=== PATIENT | male | born 1985 | race Caucasian/White ===

== ENCOUNTER 2019-12-13 09:58 | Emergency (ER) | payer SELFPAY ==
[2015-10-16 19:40] VITALS: BP 153/77
[~2019-12-13 09:58] MED LIST: HYDR-3164 PO; POLY10DR OS
== END 2019-12-13 10:04 | disposition left against medical advice (07) ==
LOC: ER 09:58
DX: F41.9 Anxiety disorder, unspecified (principal); Z53.21 Procedure and treatment not carried out due to patient leaving prior to being seen by health care provider

== ENCOUNTER 2020-11-17 22:40 | Emergency (ER) | payer SELFPAY ==
[~2020-11-17] VITALS: Ht 182.9 cm; Wt 104.0 kg
--- NOTE | 2020-11-17 22:57 | PHYS DOC ---
Past Medical History Past Medical History: No Pertinent History (HANK WILD) Past Surgical History: Other Additional Past Surgical Histo: JAW (HANK WILD) Smoking Status: Current Every Day Smoker Alcohol Use: Occasionally Drug Use: None (HANK WILD) General Adult EDM: Chief Complaint: Confusion HPI: HPI: Patient is a 35 year old male who presents via EMS with complaints of confusion after a fall yesterday. Patient is a poor historian. Patient states the last thing he remembers yesterday was going to the store for a pack of cigarettes and some food. Per EMS, he was found outside of [facility] and did not know where he lived or how to get home. He has a laceration to his central forehead and left- sided facial swelling. Patient states he has a headache, but is unable to describe his pain or quantify it. Patient admits to drinking a beer or 2 today, but denies all other alcohol and recreational drug use. Patient has no other complaints at this time. (HANK WILD) Review of Systems: Review of Systems: Review of systems unable to be obtained secondary to patient's poor history. (HANK WILD) Heart Score: C/O Chest Pain: No (HANK WILD) Allergies: Allergies: Allergies Coded Allergies Type Severity Reaction Last Updated Verified No Known Drug Allergies 10/16/15 No (HANK WILD) Physical Exam: PE: Constitutional: Well developed, well nourished, poor hygiene, non-toxic a ppearance. HENT: 1.5 cm laceration to central forehead with a small abrasion over the right eyebrow. Left maxillary region swelling and ecchymosis. Bilateral external ears normal, oropharynx moist, nose normal. Eyes: PERRLA, EOMI, conjunctiva normal, no discharge. Neck: Normal range of motion, no tenderness, supple, no stridor. Cardiovascular: Heart rate regular rhythm, no murmur. Lungs & Thorax: Bilateral breath sounds clear to auscultation. Abdomen: Bowel sounds normal, soft, no tenderness, no masses, no pulsatile masses. Skin: Puncture wounds noted to LUE in antecubital region. Skin otherwise warm, dry, no erythema, no rash. Back: No tenderness, no CVA tenderness. Extremities: No tenderness, no cyanosis, no clubbing, ROM intact, no edema. Neurologic: Alert and oriented x3, normal motor function, normal sensory function, no focal deficits noted. Psychologic: Patient does not seem to remember or be able to account for the past 36 hours. He is otherwise responsive and cooperative. (HANK WILD) EKG: EKG: [] (HANK WILD) Radiology/Procedures: Radiology/Procedures: [] (HANK WILD) Impression: No focal parenchymal lesion or hemorrhage is identified. There is no midline shift or sulcal effacement. No acute vascular territory infarction is identified. Alatorre-white distinction is preserved. The ventricular system is within normal limits without compression hydrocephalus. The basal cisterns are well maintained. Face: Mild soft tissue contusion overlying the nose. Additionally contusion in the subcutaneous fat of the left cheek. There is a minimally displaced left nasal bone fracture. The visualized portions of the paranasal sinuses and mastoid air cells are well-pneumatized. Globes and orbital contents are normal. Periapical lucency surrounding the left mandibular first molar. IMPRESSION: 1. Contusion at the left face at the bridge of the nose without underlying osseous abnormality. 2. No acute intracranial abnormality. (RAMONA GIBBONS DO) Course & Med Decision Making: Course & Med Decision Making Pertinent Labs and Imaging studies reviewed. (See chart for details) Patient is poor historian and given his age, should not be experiencing acute amnesia on presentation. Ethanol and drugs of abuse screening will be perform ed. Due to unknown nature of head trauma and facial swelling, CT face and head was ordered. Patient care transferred to Dr. Gibbons at 2300. (HANK WILD) Course & Med Decision Making Imaging reviewed No acute intracranial abnormalities Swelling along the nasal bone but no acute fractures. Wound forehead was examined appears to be old--- Patient was observed and allowed to sleep. He was discharged in stable condition. (RAMONA GIBBONS DO) Dragon Disclaimer: Dragon Disclaimer: This electronic medical record was generated, in whole or in part, using a voice recognition dictation system. (HANK WILD) Departure Departure Impression: Primary Impression: Fall Additional Impressions: Head injury Abrasion of forehead Disposition: HOME / SELF CARE / HOMELESS Condition: STABLE Referrals: NO PCP (PCP) Patient Instructions: Abrasions, Fall Prevention and Home Safety, Head Injury, Adult HANK WILD Nov 17, 2020 22:57 RAMONA GIBBONS DO Nov 18, 2020 00:11
[2020-11-17 22:58] LABS: BASO # 0.1 x10^3/uL (0.0-0.2); BASO % 1 % (0-3); EOS # 0.1 x10^3/uL (0.0-0.7); EOS % 0 % (0-3); HEMATOCRIT 45.2 % (39.0-53.0); HEMOGLOBIN 15.9 g/dL (13.0-17.5); LYMPH # 2.5 x10^3/uL (1.0-4.8); LYMPH % 18 % (24-48); MEAN CORPUSCULAR HEMOGLOBIN 34 pg (25-35); MEAN CORPUSCULAR HGB CONC 35 g/dL (31-37); MEAN CORPUSCULAR VOLUME 96 fL (79-100); MONO # 0.9 x10^3/uL (0.0-1.1); MONO % 6 % (0-9); NEUT # 10.6 x10^3/uL (1.8-7.7); NEUT % 75 % (31-73); PLATELET COUNT 175 x10^3/uL (140-400); RED BLOOD COUNT 4.72 x10^6/uL (4.30-5.70); RED CELL DISTRIBUTION WIDTH 12.9 % (11.5-14.5); WHITE BLOOD COUNT 14.2 x10^3/uL (4.0-11.0)
[2020-11-17 23:08] LABS: CALCIUM 8.5 mg/dL (8.5-10.1); CREATININE 1.3 mg/dL (0.7-1.3); GFR 62.5; POTASSIUM 3.8 mmol/L (3.5-5.1)
--- NOTE | 2020-11-17 23:22 | RAD ---
Exam: CT head and face without contrast INDICATION: Facial trauma TECHNIQUE: Sequential axial images through the head and face were obtained without the administration of IV contrast. Exposure: One or more of the following in the visualized dose reduction techniques were utilized for this examination: 1. Automated exposure control 2. Adjustment of the MA and/or KV according to patient size 3. Use of iterative of reconstructive technique Comparisons: None FINDINGS: Head: No focal parenchymal lesion or hemorrhage is identified. There is no midline shift or sulcal effaceme nt. No acute vascular territory infarction is identified. Alatorre-white distinction is preserved. The ventricular system is within normal limits without compression hydrocephalus. The basal cisterns are well maintained. Face: Mild soft tissue contusion overlying the nose. Additionally contusion in the subcutaneous fat of the left cheek. There is a minimally displaced left nasal bone fracture. The visualized portions of the p aranasal sinuses and mastoid air cells are well-pneumatized. Globes and orbital contents are normal. Periapical lucency surrounding the left mandibular first molar. IMPRESSION: 1. Contusion at the left face at the bridge of the nose without underlying osseous abnormality. 2. No acute intracranial abnormality. Electronically signed by: Сергей Matos MD (11/17/2020 11:19 PM) [facility]
[2020-11-17] MEDS ORDERED: IBUPROFEN 400 MG TABLET. PO ONE (23:30)
[2020-11-17] MEDS ORDERED: IV RINGERS,LACTATED 500ML 500 ML IV ONE (23:30)
[2020-11-18 03:09] VITALS: BP 131/73
--- NOTE | 2020-11-19 03:00 | EKG ---
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
--- NOTE | 2020-11-29 12:55 | EKG ---
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
== END 2020-11-18 04:14 | disposition home or self-care (01) ==
LOC: ER 22:40
DX: S00.81XA Abrasion of other part of head, initial encounter (principal); R41.0 Disorientation, unspecified; F17.200 Nicotine dependence, unspecified, uncomplicated; W18.39XA Other fall on same level, initial encounter; Y93.89 Activity, other specified; Y92.89 Other specified places as the place of occurrence of the external cause; Y99.8 Other external cause status
CPT/HCPCS: 36415; 70450; 70486; 80048; 85025; 93005; 99285; G0480; J7120